=== PATIENT | male | born 1965 | race Caucasian/White ===

== ENCOUNTER 2018-12-30 08:47 | Day surgery (SDC) | payer BC ==
[2018-12-29 15:31] VITALS: BMI 31.4
[2018-12-30] MEDS ORDERED: Oxymetazoline HCl 0.05% ( 15 ML ) ONE ×3 (10:02→14:57)
[2018-12-30] MEDS ORDERED: Midazolam HCl 2 mg/2 ml Vial ONE (10:30)
[2018-12-30] MEDS ORDERED: Bacitracin Zinc Ointment 30 gm TUBE ONE (11:59)
[2018-12-30] MEDS ORDERED: Lidocaine 1% w/Epinephrine 1:100K 20 ML VIAL ONE (11:59)
[2018-12-30] MEDS ORDERED: methylPREDNISolone Acetate 40 mg/ml Vial ONE (12:04)
[2018-12-30] MEDS ORDERED: Fentanyl 250 MCG/5 ML VIAL ONE (12:13)
[2018-12-30] MEDS ORDERED: Labetalol HCl 100 MG/20 ML VIAL ONE (13:21)
[2018-12-30] MEDS ORDERED: Fentanyl 100 MCG/2 ML VIAL ONE ×3 (13:23→14:03)
[2018-12-30] MEDS ORDERED: HYDROcodone/Acetaminophen 5/325 mg Tablet ONE (16:06)
[2018-12-30] MEDS ORDERED: Glycopyrrolate 0.2 MG/ML 5 ML SYRINGE ONE (16:28)
[2018-12-30] MEDS ORDERED: Ondansetron PF 4 MG/2 ML Vial ONE (16:28)
[2018-12-30] MEDS ORDERED: Dexamethasone 20 MG/5 ML VIAL ONE (16:28)
[2018-12-30] MEDS ORDERED: PROPOFOL 200 MG/20 ML VIAL ONE (16:28)
[2018-12-30] MEDS ORDERED: Lidocaine 1% PF 5 ML VIAL ONE (16:28)
[2018-12-30] MEDS ORDERED: Rocuronium Bromide 10 MG/ML (10ML VIAL) ONE (16:28)
--- NOTE | 2018-12-31 12:36 | OP ---
DATE OF PROCEDURE: 12/30/2018 PREOPERATIVE DIAGNOSES: 1. Chronic rhinosinusitis. 2. Nasal septal deviation. 3. Bilateral inferior turbinate hypertrophy. 4. Nasal obstruction. POSTOPERATIVE DIAGNOSES: 1. Chronic rhinosinusitis. 2. Nasal septal deviation. 3. Bilateral inferior turbinate hypertrophy. 4. Nasal obstruction. PROCEDURES PERFORMED: 1. Bilateral endoscopic sinus surgery, total ethmoidectomies. 2. Bilateral endoscopic sinus surgery, maxillary antrostomies. 3. Bilateral endoscopic sinus surgery, frontal sinusotomies. 4. Bilateral endoscopic sinus surgery, sphenoidotomies. 5. Nasal septoplasty. 6. Bilateral inferior turbinate submucosal resection. ESTIMATED BLOOD LOSS: 0 mL. COMPLICATIONS: None. ANESTHESIA: GETA. PROCEDURE IN DETAIL: Patient was taken to the operating room and placed supine on the table. General endotracheal anesthesia was obtained by the anesthesia staff. Tube was secured in the left lower lip. Patient was then placed in the beach chair position, and Afrin pledgets were placed in the nasal cavity. Injections of 1% lidocaine with 1:100,000 epinephrine were made into the nasal septum as well as the inferior turbinates. Patient was then prepped and draped in standard surgical fashion for nasal surgery. Following this, the Afrin pledgets were removed. A Sanchez incision was made on the left nasal septum. Submucoperichondrial dissection was performed. The deviated portions of the septum included portions of the cartilage and the bony septum. These isolated areas were removed using 3 cutting rongeurs. There was noted to be a large dorsal and caudal strut, left intact for support of the nose. The mucoperichondrial flaps were then reapproximated using a 4-0 gut stitch. Any straight pieces of cartilage were crushed prior to this and placed between the mucoperichondrial flaps. Following this, the inferior turbinates were then punctured with a submucosal coblation wand, and submucosal coblations were performed of multiple areas of the inferior portion of the anterior inferior turbinate. Please note that submucosal microdebrider was used to submucosally resect the anterior and inferior portions of the inferior turbinates. Following this, the inferior turbinates were laterally fractured with a Scobey elevator. Following this, the endoscope was advanced into the middle meatus. The middle turbinates were gently medialized with a Scobey elevator. The uncinate process was then identified bilaterally. Following this, the ball-ended probe was then used to anteriorly fracture the uncinate process and it was removed using the straight microdebrider and the up-biting Blakesley forceps bilaterally. Following this, the natural maxillary sinus ostia identified and was widened using the curved microdebrider and the straight Blakesley forceps bilaterally. Following this, ethmoidal bulla was identified and was punctured on its medial and inferior aspect and was removed using the microdebrider. Following this, the grand lamella was identified and was punctured into the posterior ethmoidal cells. Working from posterior to anterior, the ethmoidal cells were opened in a mucosal sparing technique. Following this, the sphenoid sinus ostia was approached through the previous ethmoidectomies, where the sphenoid sinus ostia was identified just medial and inferior to the attachment of the superior turbinates to the posterior nasal wall, widening the sphenoidotomy medially and inferiorly with the microdebrider was performed bilaterally. Following this, a 45-degree endoscope and the 40-degree microdebrider blade were then further used to open the frontal sinus ostia and frontal sinus recess bilaterally. Following this, the nasal cavity was irrigated. Mirapex was placed within the middle meatus. Locke splints were placed and secured. Job ID: [id number]
--- NOTE | 2019-01-06 14:12 | EKG ---
Test Reason : PREOP Blood Pressure : / mmHG Vent. Rate : 078 BPM Atrial Rate : 078 BPM P-R Int : 150 ms QRS Dur : 110 ms QT Int : 352 ms P-R-T Axes : 031 -03 015 degrees QTc Int : 401 ms Normal sinus rhythm Non-specific intra-ventricular conduction delay Abnormal ECG Confirmed by TIMUR PADILLA ([id number]) on 01/06/2019 2:11:49 PM Referred By: [facility] Confirmed By:TIMUR PADILLA
== END 2018-12-30 16:50 | disposition home or self-care (01) ==
LOC: SDC 08:47
PROVIDERS: ATTEND Otolaryngology Plastic Surgery within the Head & Neck
PROC: 09BL8ZZ Excision of Nasal Turbinate, Via Natural or Artificial Opening Endoscopic (ICD-10-PCS; principal; 2018-12-30)
PROC: 09DV4ZZ Extraction of Left Ethmoid Sinus, Percutaneous Endoscopic Approach (ICD-10-PCS; principal; 2018-12-30)
PROC: 09DU4ZZ Extraction of Right Ethmoid Sinus, Percutaneous Endoscopic Approach (ICD-10-PCS; principal; 2018-12-30)
DX: J32.8 Other chronic sinusitis (principal); J34.2 Deviated nasal septum; J34.3 Hypertrophy of nasal turbinates; K21.9 Gastro-esophageal reflux disease without esophagitis; R06.83 Snoring
CPT/HCPCS: 93005; 93010; J1030; J1100; J2001; J2250; J2405; J2704; J3010